=== PATIENT | male | born 1960 | race Caucasian/White ===

== ENCOUNTER 2024-10-12 08:09 | Outpatient (CLI) | payer BC, SELFPAY ==
--- NOTE | 2024-10-12 08:00 | RT.EKG_ITS ---
APPROVED REPORT Exam: Resting ECG Reason for Exam: establishment of care Patient Location: O HR:64 bpm ECG Measurements Heart Rate 64 AXIS IA 157 P 23 QRSd 96 QRS -18 QT 370 T -4 QTc 382 Conclusion Sinus rhythm...normal P axis, V-rate 50- 99 Borderline left axis deviation...QRS axis (-15,-29) Abnormal R-wave progression, late transition...QRS area<0 in V5/V6 Borderline T abnormalities, inferior leads...T flat/neg, II III aVF
== END 2024-10-12 08:10 | disposition home or self-care (01) ==
LOC: DI.CARD 08:09
PROVIDERS: PCP Internal Medicine; Visit Provider Registered Nurse
DX: R07.9 Chest pain, unspecified (principal); I21.4 Non-ST elevation (NSTEMI) myocardial infarction
CPT/HCPCS: 93010

== ENCOUNTER 2024-10-26 09:25 | Outpatient (CLI) | payer BC, SELFPAY ==
--- NOTE | 2024-10-26 08:15 | DI.RAD_ITS ---
Exam(s) XR FOOT RT COMPLETE EXAM: XR FOOT RT COMPLETE CLINICAL HISTORY: M79.671 Right foot pain. TECHNIQUE: 2D digital imaging was performed of the right foot. Three images were obtained. AP, obl ique and lateral views were obtained. COMPARISON: No exams were available for comparison FINDINGS: BONES: No acute fracture is present. No bony destructive lesion is seen. There is a tiny enthesophyte at the posterior calcaneus. JOINTS: No dislocation present. At the 1st MTP joint there is mild joint space narrowing and small os teophytes. SOFT TISSUE: Dystrophic calcifications are seen in the soft tissue on the plantar surface of the foot . IMPRESSION: Mild degenerative changes of the foot, particularly seen at the 1st MTP joint. DATA REPOSITORY: RADIATION DOSE DELIVERED:
--- NOTE | 2024-10-26 08:15 | DI.RAD_ITS ---
Exam(s) XR FOOT LT COMPLETE EXAM: XR FOOT LT COMPLETE CLINICAL HISTORY: M79.672 Left foot pain. TECHNIQUE: 2D digital imaging was performed of the left foot. Three images were obtained. AP, obli que and lateral views were obtained. COMPARISON: No exams were available for comparison FINDINGS: BONES: No acute fracture is present. No bony destructive lesion is seen. There is a tiny enthesophyte at the posterior calcaneus. JOINTS: No dislocation present. At the 1st MTP joint, there is mild joint space narrowing. The joint spaces are otherwise well maintained. SOFT TISSUE: Normal. IMPRESSION: Mild degenerative changes seen at the 1st MTP joint. DATA REPOSITORY: RADIATION DOSE DELIVERED:
== END 2024-10-26 09:45 ==
LOC: DI 09:25
PROVIDERS: PCP Internal Medicine; Visit Provider Podiatrist
DX: M19.071 Primary osteoarthritis, right ankle and foot (principal); M19.072 Primary osteoarthritis, left ankle and foot
CPT/HCPCS: 73630

== ENCOUNTER 2024-11-17 06:42 | Outpatient (CLI) | payer BC, SELFPAY ==
--- NOTE | 2024-11-17 11:17 | W.CARDEVENT ---
Date of service: 11/17/24 Time of Service: 11:17 Cardiac Event Recorder Referring Provider:: Marlyn Oseguera Indications:: Palpitations Cardiac Event Note: This is a cardiac event monitor. Patient was monitored for 3 days and 13 hours. Predominant rhythm was sinus. Average heart rate overall was 70. Minimum was 57, maximum 116 There were occasional ventricular ectopic beats. There were rare atrial premature beats. There was no atrial fibrillation, no high-grade AV block, no pauses greater than 3 seconds. Symptoms were reported which appeared to correlate with premature ventricular contractions
== END 2024-11-17 06:43 | disposition home or self-care (01) ==
LOC: CARDOPNVT 06:42
PROVIDERS: PCP Family Medicine; Visit Provider Internal Medicine Cardiovascular Disease
DX: I49.3 Ventricular premature depolarization
CPT/HCPCS: 93272

== ENCOUNTER 2025-03-30 08:15 | Outpatient (CLI) | payer BC, SELFPAY ==
--- NOTE | 2025-03-30 06:00 | DI.RAD_ITS ---
Exam(s) XR ANKLE RT COMPLETE EXAM: XR ANKLE RT COMPLETE CLINICAL HISTORY: pain RT ANKLE,M25.572. TECHNIQUE: 2D digital imaging was performed. Three views. COMPARISON: No exams were available for comparison FINDINGS: BONES: No acute fracture is present. No bony destructive lesion is seen. JOINTS: The ankle mortise is normally aligned. The tibiotalar joint space is maintained. There is spurring at the anterior aspect of the distal tibia as well as at the talonavicular joint. SOFT TISSUE: Normal. IMPRESSION: Degenerative changes at the anterior tibial talar and talonavicular joints. DATA REPOSITORY: RADIATION DOSE DELIVERED:
== END 2025-03-30 08:35 ==
LOC: DI 08:15
PROVIDERS: PCP Family Medicine; Visit Provider Podiatrist
DX: M19.071 Primary osteoarthritis, right ankle and foot (principal)
CPT/HCPCS: 73610

== ENCOUNTER → 2025-06-03 01:54 | Outpatient (CLI) | payer OTHER, SELFPAY ==
--- NOTE | 2025-06-03 | DI.RAD_ITS ---
Exam(s) XR ANKLE RT 2V EXAM: XR ANKLE RT 2V CLINICAL HISTORY: DEGENERATIVE ARTHRITIS M19.90. TECHNIQUE: 2D digital imaging was performed. COMPARISON: CR XR ANKLE RT COMPLETE from 03/30/2025 FINDINGS: Two weight-bearing views-AP and lateral: No evidence of fracture nor widening of the ankle mortise. There is a subcortical lucency in the lateral aspect of the talar dome which is either subarticular cyst or possibly artifact. There no findings in the middle and medial aspect of the talar dome. Previously described degenerative changes anteriorly in the tibiotalar joint are again noted with joint space narrowing and degenerative subarticular cyst in the anterior most aspect of the tibial plafond that this level. There is no obvious narrowing in the posterior aspect of the tibiotalar joint nor in the subtalar joint. There are again noted some degenerative changes on the dorsal aspect of the talonavicular articulation, similar to previous. Other articulations of the hindfoot appear unremarkable. There is no inferior calcaneal spur but there are multiple calcifications seen in the plantar fascia. There is also an enthesophyte again noted on the posterior calcaneus Achilles insertion site. IMPRESSION: Multilevel findings as above but similar in appearance to the radiographs of 03/30/2025. If clinically indicated follow-up MRI can be performed DATA REPOSITORY: RADIATION DOSE DELIVERED:
== END ==
PROVIDERS: PCP Family Medicine; Visit Provider Chiropractor
DX: M19.90 Unspecified osteoarthritis, unspecified site (principal)
CPT/HCPCS: 73600